=== PATIENT | female | born 1990 | race Caucasian/White ===

== ENCOUNTER 2018-02-06 10:16 | Inpatient (IN) | payer MEDICAID ==
[2018-02-06] VITALS (7 sets, daily range): BP systolic 111–127; BP diastolic 68–76
[~2018-02-06] VITALS: Ht 154.9 cm; Wt 54.9 kg
[2018-02-06] MEDS ORDERED: LACTATED RINGERS 1000ML 1,000 ML IV PRN (10:21)
[2018-02-06] MEDS ORDERED: OXYTOCIN 10 USP UNITS/ML 20 UNIT in LACTATED RINGERS 1000ML 1,000 ML IV SCH (10:30)
[2018-02-06] MEDS ORDERED: OXYTOCIN-LR 20 UNITS/1000 ML 1,000 ML IV SCH (10:30)
[2018-02-06 11:04] LABS: APPEARANCE,URINE Clear (CLEAR); BILIRUBIN,URINE Negative (NEGATIVE); COLOR,URINE Yellow (YELLOW); GLUCOSE, URINE (UA) Negative (NEGATIVE); KETONES,URINE Trace mg/dL (NEGATIVE); LEUKOCYTE ESTERASE ,URINE Large (NEGATIVE); NITRATE,URINE Negative (NEGATIVE); OCCULT BLOOD,URINE Negative (NEGATIVE); PROTEIN,URINE Negative (NEGATIVE)
[2018-02-06 11:12] LABS: BACTERIA,URINE Rare /HPF (None Seen); RBC,URINE 0-1 /HPF (0-1); SQUAMOUS EPITHELIAL CELL,UR Rare /HPF (0-2)
[2018-02-06 11:15] LABS: HEMATOCRIT 26.3 % (36-48); MEAN CORPUSCULAR HEMOGLOBIN 24.7 pg (27.0-33.0); MEAN CORPUSCULAR HGB CONC 32.6 g/dL (32.0-36.0); MEAN CORPUSCULAR VOLUME 75.8 fL (79-99); NUCLEATED RED BLOOD CELLS 0.2 % (0.0-0.19); PLATELET COUNT (AUTO) 306 K/uL (130-400); RED BLOOD CELL COUNT(AUTO) 3.47 MIL/uL (4.00-5.50); RED CELL DISTRIBUTION WIDTH 17.2 % (11.0-15.5); WHITE BLOOD COUNT (AUTO) 9.8 K/uL (4.8-10.8)
[2018-02-06] MEDS ORDERED: OXYTOCIN 10 USP UNITS/ML ONE ×2 (11:31→18:22)
[2018-02-06] MEDS ORDERED: MEPERIDINE-PF 25 MG/ML SYG ONE (12:13)
[2018-02-06] MEDS ORDERED: MEPERIDINE-PF 25 MG/ML SYG IVP SCH (12:15)
[2018-02-06] MEDS ORDERED: ACETAMINOPHEN 325 MG TAB PO PRN (13:45)
[2018-02-06] MEDS ORDERED: DIPH,PERTUSS(ACELL),TET VAC/PF 0.5 ML VIAL IM PRN (13:45)
[2018-02-06] MEDS ORDERED: ACETAMINOPHEN-CODEINE 300/30MG TAB PO PRN (13:45)
[2018-02-06] MEDS ORDERED: WITCH HAZEL 1 PAD TP PRN (13:45)
[2018-02-06] MEDS ORDERED: HYDROCODONE/ACETAMINOPHEN 5/325 MG TAB PO PRN (13:45)
[2018-02-06] MEDS ORDERED: BENZOCAINE/LANOLIN/ALOE VERA 60 ML AEROSOL TP PRN (13:45)
[2018-02-06] MEDS ORDERED: MEASLES/MUMPS/RUBELLA VACCINE, LIVE 0.5 ML/VIAL SQ PRN (13:45)
[2018-02-06] MEDS ORDERED: LANOLIN 30GM OINTMENT TP PRN (13:45)
[2018-02-06] MEDS ORDERED: PNV1TABL17 PO (14:05)
[2018-02-06] MEDS: IBUPROFEN 800 MG TAB PO PRN (14:26)
[2018-02-06] MEDS ORDERED: MEASLES/MUMPS/RUBELLA VACCINE, LIVE 0.5 ML/VIAL SQ ONE (18:00)
[2018-02-06] MEDS ORDERED: DIPH,PERTUSS(ACELL),TET VAC/PF 0.5 ML VIAL IM ONE (18:00)
[2018-02-06] MEDS: DOCUSATE SODIUM 100 MG CAP PO SCH (21:41)
[2018-02-07] VITALS (7 sets, daily range): BP systolic 104–122; BP diastolic 64–75
[2018-02-07] MEDS: IBUPROFEN 800 MG TAB PO PRN ×3 (02:52→20:49)
[2018-02-07 05:31] LABS: MEAN CORPUSCULAR HEMOGLOBIN 23.6 pg (27.0-33.0); MEAN CORPUSCULAR HGB CONC 30.9 g/dL (32.0-36.0); MEAN CORPUSCULAR VOLUME 76.5 fL (79-99); NUCLEATED RED BLOOD CELLS 0.1 % (0.0-0.19); PLATELET COUNT (AUTO) 216 K/uL (130-400); RED BLOOD CELL COUNT(AUTO) 3.26 MIL/uL (4.00-5.50); RED CELL DISTRIBUTION WIDTH 17.3 % (11.0-15.5); WHITE BLOOD COUNT (AUTO) 14.8 K/uL (4.8-10.8)
[2018-02-07] MEDS ORDERED: SODIUM CHLORIDE 0.9% 1000ML 1,000 ML IV SCH (07:45)
[2018-02-07 08:23] LABS: HEPATITIS Bs ANTIGEN SCREEN P Negative (Negative)
[2018-02-07] MEDS: DOCUSATE SODIUM 100 MG CAP PO SCH ×2 (09:34→20:48)
[2018-02-08 04:12] VITALS: BP 117/68
[2018-02-08] MEDS: IBUPROFEN 800 MG TAB PO PRN ×2 (04:26→14:25)
[2018-02-08 07:39] VITALS: BP 118/70
[2018-02-08] MEDS: DOCUSATE SODIUM 100 MG CAP PO SCH (08:32)
[2018-02-08 11:10] VITALS: BP 118/70
== END 2018-02-08 15:45 | disposition home or self-care (01) | DRG 560 ==
LOC: LDH 10:16 → WSH 13:50
PROVIDERS: ADMIT Obstetrics & Gynecology; ATTEND Obstetrics & Gynecology
PROC: 10E0XZZ Delivery of Products of Conception, External Approach (ICD-10-PCS; principal; 2018-02-07)
PROC: 10907ZC Drainage of Amniotic Fluid, Therapeutic from Products of Conception, Via Natural or Artificial Opening (ICD-10-PCS; 2018-02-07)
PROC: 30233N1 Transfusion of Nonautologous Red Blood Cells into Peripheral Vein, Percutaneous Approach (ICD-10-PCS; 2018-02-07)
DX: O75.9 Complication of labor and delivery, unspecified (principal); Z37.0 Single live birth; Z3A.37 37 weeks gestation of pregnancy
CPT/HCPCS: 36415; 81001; 85027; 86592; 86850; 86900; 86901; 86922; 87340; 90715; A4606; J2175; J2590; J7030; J7120; P9016

== ENCOUNTER 2018-04-15 05:46 | Day surgery (SDC) | payer MEDICAID ==
[2018-04-14 11:30] VITALS: BP 103/56
[2018-04-14 11:34] LABS: BASOPHILS % (AUTO) 0.5 % (0.0-5.0); EOSINOPHILS % (AUTO) 3.4 % (0.0-8.0); HEMATOCRIT 33.3 % (36-48); LYMPHOCYTES % (AUTO) 26.1 % (21.0-51.0); MEAN CORPUSCULAR HEMOGLOBIN 28.8 pg (27.0-33.0); MEAN CORPUSCULAR HGB CONC 33.9 g/dL (32.0-36.0); MEAN CORPUSCULAR VOLUME 84.9 fL (79-99); MONOCYTES % (AUTO) 10.8 % (3.0-13.0); NEUTROPHILS % (AUTO) 59.2 % (40.0-77.0); PLATELET COUNT (AUTO) 289 K/uL (130-400); RED BLOOD CELL COUNT(AUTO) 3.92 MIL/uL (4.00-5.50); RED CELL DISTRIBUTION WIDTH 20.1 % (11.0-15.5); WHITE BLOOD COUNT (AUTO) 4.5 K/uL (4.8-10.8)
[~2018-04-15] VITALS: Ht 162.6 cm; Wt 53.0 kg
[2018-04-15] VITALS (15 sets, daily range): BP systolic 100–131; BP diastolic 57–77
[~2018-04-15 05:46] MED LIST: LACTATED RINGERS 1000ML 1,000 ML IV SCH
[2018-04-15] MEDS ORDERED: DEXAMETHASONE SOD PHOSPHATE 10MG/ML 1ML VIAL ONE (08:14)
[2018-04-15] MEDS ORDERED: PROPOFOL 10 MG/ML 20ML VIAL IV ONE (08:14)
[2018-04-15] MEDS ORDERED: ONDANSETRON HCL 4 MG/2 ML VIAL ONE (08:14)
[2018-04-15] MEDS ORDERED: GLYCOPYRROLATE 1 MG/5 ML SYRINGE ONE (08:14)
[2018-04-15] MEDS ORDERED: MIDAZOLAM HCL 1 MG/ML 2ML VIAL ONE (08:14)
[2018-04-15] MEDS ORDERED: NEOSTIGMINE 5MG/5ML SYR IV ONE (08:14)
[2018-04-15] MEDS ORDERED: SUCCINYLCHOLINE 200MG/10ML SYR ONE (08:14)
[2018-04-15] MEDS ORDERED: LIDOCAINE PF 2% 5ML ABBOJECT ONE (08:14)
[2018-04-15] MEDS ORDERED: ROCURONIUM 10MG/1ML SYR 10 MG/ML ML ONE (08:15)
[2018-04-15] MEDS ORDERED: FENTANYL CITRATE PF 50 MCG/1 ML 2ML VIAL ONE (08:15)
[2018-04-15] MEDS ORDERED: KETOROLAC TROMETHAMINE 30MG/ML ONE (09:23)
== END 2018-04-15 10:45 | disposition home or self-care (01) ==
LOC: DAH 05:46
PROVIDERS: ATTEND Obstetrics & Gynecology
DX: Z30.2 Encounter for sterilization (principal); D64.9 Anemia, unspecified
CPT/HCPCS: 36415; 58670; 84702; 85025; 86850; 86900; 86901; A4215; A4351; A4452; A4510; A4600; A4606; C1769 ×2; J0330; J1100; J1885; J2001; J2250; J2405; J2704; J2710; J3010; J3490; J7120